=== PATIENT | female | born 1985 | race Caucasian/White ===

== ENCOUNTER 2016-07-16 08:50 | Emergency (ER) | payer OTHER ==
[~2016-07-16] VITALS: Ht 154.9 cm; Wt 68.0 kg
[2016-07-16 08:57] VITALS: BP 128/92
[2016-07-16 09:28] LABS: ABSOLUTE BASOPHIL COUNT 0.1 /CUMM (0.0-0.2); ABSOLUTE EOSINOPHIL COUNT 0 /CUMM (0.0-0.7); ABSOLUTE GRANULOCYTE CT 4.7 /CUMM (1.4-6.5); ABSOLUTE LYMPH COUNT 2.1 /CUMM (1.2-3.4); ABSOLUTE MONOCYTE COUNT 0.4 /CUMM (0.10-0.60); BASOPHIL % 0.8 % (0.0-2.0); EOSINOPHIL % 0.6 % (0-5); GRANULOCYTE % 64.6 % (42.2-75.2); HEMATOCRIT 38.8 % (37-47); MEAN CORPUSCULAR HGB 30.7 PG (27.0-31.0); MEAN CORPUSCULAR HGB CONC 34.3 G/DL (33.0-37.0); MEAN CORPUSCULAR VOLUME 89.3 FL (81.0-99.0); MEAN PLATELET VOLUME 10.1 FL (7.4-10.4); PLATELET COUNT 199 /CUMM (130-400); RBC DISTRIBUTION WIDTH 13.4 % (11.5-14.5); RED BLOOD CELL CT 4.34 /CUMM (4.20-5.40); WHITE BLOOD CELL COUNT 7.3 /CUMM (4.8-10.8)
--- NOTE | 2016-07-16 09:38 | ED EYE COMPLAINT ---
History of Present Illness General Chief Complaint: General Adult Stated Complaint: EXPOSURE FROM BLISTER Source: patient, old records, friend Exam Limitations: no limitations Vital Signs & Intake/Output Vital Signs & Intake/Output Vital Signs Date Time Temp Pulse Resp B/P Pulse O2 O2 Flow FiO2 Ox Delivery Rate 07/16 0906 Room Air Room Air 07/16 0857 98.6 98 20 128/92 98 Room Air Allergies Coded Allergies: NO KNOWN ALLERGIES (11/21/10) Triage Note: RN ON FLOOR WAS ASSESSING A PT WHEN A FLUID FILLED BLISTER ON THE PT POPPED AND DRAINAGE MAY HAVE GONE IN HER EYE Triage Nurses Notes Reviewed? yes Onset: Just prior to arrival Duration: minute(s): Timing: single episode today Injury Environment: work Severity: mild No Modifying Factors: none Left Eye Associated Symptoms: currently none LMP (ages 10-50): unknown : No Patient currently breastfeeds: No HPI: This prior to admission patient was assessing IV site and bolus lesion was expressed squirting to her left eye. She irrigated her eye immediately. She denies fever chills nausea vomiting diarrhea abdominal pain chest pain shortness breath headache dysuria rash bleeding change of vision. Past History Travel History Traveled to [place] past 21 day No Medical History Any Pertinent Medical History? see below for history Neurological: MIGRAINES Surgical History Surgical History: non-contributory Psychosocial History What is your primary language Pashto Tobacco Use: Never used ETOH Use: occasional use Illicit Drug Use: denies illicit drug use Family History Hx Contributory? No Review of Systems Review of Systems Constitutional: Reports: no symptoms. Eyes: Reports: see HPI. Ear: Reports: no symptoms. Nose: Reports: no symptoms. Mouth: Reports: no symptoms. Throat: Reports: no symptoms. Respiratory: Reports: no symptoms. Cardiovascular: Reports: no symptoms. GI: Reports: no symptoms. Genitourinary: Reports: no symptoms. Musculoskeletal: Reports: no symptoms. Skin: Reports: no symptoms. Neurological/Psychological: Reports: no symptoms. Hematologic/Endocrine: Reports: no symptoms. Immunologic/Allergic: Reports: no symptoms. All Other Systems: Reviewed and Negative Physical Exam General Appearance: well developed/nourished, mild distress General Inspection: normal inspection Eyelid: normal inspection Conjunctiva/Sclera: normal inspection Cornea: normal inspection EOM: intact Pupil: normal accommodation, normal pupil, PERRL Anterior Chamber: normal inspection General Inspection: normal inspection Eyelid: normal inspection Conjunctiva/Sclera: normal inspection Cornea: normal inspection EOM: intact Pupil: normal accommodation, normal pupil, PERRL Anterior Chamber: normal inspection Physical Exam Head: atraumatic, normal appearance Ears: Bilateral: canal normal, Tympanic normal. Nose: normal inspection Mouth/Throat: normal mouth inspection Neck: normal inspection, supple, full range of motion, no midline tenderness Cardiovascular/Respiratory: normal breath sounds, normal peripheral pulses, regular rate/rhythm, no respiratory distress Neurologic/Psych: no motor/sensory deficits, awake, alert, oriented x 3, normal gait, normal mood/affect, manager telemetry II-XII nml as tested Skin: intact, normal color, warm/dry Progress Differential Diagnosis: corneal foreign body, conjunctivitis Plan of Care: Orders Procedure Date/time Status HIV EXPOSURE/NEEDLESTICK 07/17 911 Active HUMAN BETA HCG SCREEN 07/17 911 Active HEPT C ANTIBODY 07/17 911 Active HEPT B SURFACE ANTIBODY 07/17 911 Active GAMMA GLUTAMYL TRANSFERASE 07/17 911 Active COMPREHENSIVE METABOLIC PANEL 07/17 911 Active CBC WITHOUT DIFFERENTIAL 07/17 911 Complete TRNSFRASE ASPART AMINO 07/17 911 Active TRNSFRAS ALANINE AMINO 07/17 911 Active Laboratory Tests 07/16/16 0920: Sodium Pending, Potassium Pending, Chloride Pending, Carbon Dioxide Pending, Anion Gap Pending, BUN Pending, Creatinine Pending, BUN/Creatinine Ratio Pending , Glucose Pending, Calcium Pending, Total Bilirubin Pending, GGT Pending, AST Pending, ALT Pending, Alkaline Phosphatase Pending, Total Protein Pending, Albumin Pending, Globulin Pending, Albumin/Globulin Ratio Pending, Total Beta HCG Pending, CBC w Diff NO MAN DIFF REQ, RBC 4.34, MCV 89.3, MCH 30.7, RDW 13.4, MPV 10.1, Gran % 64.6, Lymphocytes % 28.1, Monocytes % 5.9, Eosinophils % 0.6, Basophils % 0.8, Absolute Granulocytes 4.7, Absolute Lymphocytes 2.1, Absolute Monocytes 0.4, Absolute Eosinophils 0, Absolute Basophils 0.1, PUBS MCHC 34.3, Hep Bs Antibody Pending, Hepatitis C Antibody Pending, HIV 1&2 Antibody Pending Departure Departure Time of Disposition: 936 Disposition: HOME OR SELF CARE Condition: Stable Clinical Impression Primary Impression: Employee exposure to body fluids Referrals: JAQCUES NELSON,MARISSA Lubin (PCP/Family) Departure Forms: Customer Survey [employer] Employee Acc General Discharge Information
== END 2016-07-16 09:48 ==
LOC: ERH 08:50
PROVIDERS: Emergency Medicine
DX: Z77.21 Contact with and (suspected) exposure to potentially hazardous body fluids (principal); X58.XXXA Exposure to other specified factors, initial encounter; Y93.89 Activity, other specified; Y92.239 Unspecified place in hospital as the place of occurrence of the external cause
CPT/HCPCS: 86803; 87389